=== PATIENT | male | born 1995 | race Hispanic/Latino ===

== ENCOUNTER 2017-12-17 20:56 | Emergency (ER) | payer SELFPAY ==
[2017-12-17 20:57] VITALS: BMI 22.3
[2017-12-17 21:06] VITALS: RESP 18
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
[2017-12-17] MEDS ORDERED: TDAP Vaccine 0.5 mL Syr IM ONE (21:14)
[2017-12-17] MEDS ORDERED: ceFAZolin 1 gm in NS 1 GM/100 ML BAG IVPB STA (21:17)
[2017-12-17] MEDS ORDERED: Lidocaine 1%/Epinephrine 1:100000 30 ml vial IJ STA (21:22)
[2017-12-17] MEDS ORDERED: Morphine 4 mg/ml ISec IVP STA (21:27)
[2017-12-17 21:50] LABS: ALB/GLOB RATIO 1.7 (1.1-1.8); ALBUMIN 4.7 g/dL (3.0-4.8); ALT/SGPT 34 U/L (7-56); AST/SGOT 32 U/L (17-59); BLOOD UREA NITROGEN 13 mg/dL (7-21); CALCIUM 9.6 mg/dL (8.4-10.5); GFR AFRICAN-AMERICAN > 60; GFR NON-AFRICAN AMERICAN > 60
[2017-12-17 21:52] LABS: BASO # 0.02 K/mm3 (0.0-2.0); BASO % 0.2 % (0.0-3.0); EOS # 0.2 (0.0-0.7); EOS % 1.7 % (1.5-5.0); GRAN # 5.7 (1.4-6.5); GRAN % 61.8 % (50.0-68.0); HEMOGLOBIN 13.9 g/dL (14.0-18.0); LYMPH # 2.7 (1.2-3.4); LYMPH % 29.4 % (22.0-35.0); MEAN CORPUSCULAR HEMOGLOBIN 27.5 pg (25.0-35.0); MEAN PLATELET VOLUME 10.6 fl (7.0-11.0); MONO # 0.6 (0.1-0.6); MONO % 6.9 % (1.0-6.0); RBC 5.05 10^6/uL (3.5-6.1); RED CELL DISTRIBUTION WIDTH 13.7 % (11.5-14.5); WHITE BLOOD COUNT 9.2 10^3/ul (4.5-11.0)
[2017-12-17] MEDS ORDERED: Iohexol 350 MG/100 ML VIAL ONE (22:00)
[2017-12-18] MEDS ORDERED: Lidocaine 1% Inj (20ml) ONE (00:06)
[2017-12-18 01:42] VITALS: BP 140/101; PULSE 85; TEMP 98.2; O2SAT 100
[2017-12-18] MEDS ORDERED: Oxycodone/Acetaminophen 5/325 mg Tab PO STA (01:42)
--- NOTE | 2017-12-18 08:11 | RAD ---
Date of service: 12/17/2017 HISTORY: medical clearance COMPARISON: No prior. TECHNIQUE: Chest PA and lateral FINDINGS: LUNGS: No active pulmonary disease. PLEURA: No significant pleural effusion identified. No pneumothorax apparent. CARDIOVASCULAR: Normal. OSSEOUS STRUCTURES: No significant abnormalities. VISUALIZED UPPER ABDOMEN: Normal. OTHER FINDINGS: None. IMPRESSION: No active disease.
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
== END 2017-12-18 01:56 | disposition home or self-care (01) ==
LOC: ED 20:56
DX: S21.112A Laceration without foreign body of left front wall of thorax without penetration into thoracic cavity, initial encounter (principal); X99.1XXA Assault by knife, initial encounter; Z23 Encounter for immunization
CPT/HCPCS: 12007; 71046; 74177; 80053; 85025; 90471; 90715; 96374; 99284; J0690; J2270; Q9967

== ENCOUNTER 2017-12-29 09:37 | Emergency (ER) | payer SELFPAY ==
[2017-12-29 09:51] VITALS: BMI 21.7
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
[2017-12-29 09:56] VITALS: BP 119/75; PULSE 72; RESP 18; TEMP 97.9; O2SAT 98
[2017-12-29] MEDS ORDERED: Oxycodone/Acetaminophen 5/325 mg Tab PO STA (10:25)
== END 2017-12-29 10:33 | disposition home or self-care (01) ==
LOC: ED 09:37
DX: Z48.02 Encounter for removal of sutures (principal); Z91.19 Patient's noncompliance with other medical treatment and regimen